=== PATIENT | female | born 1980 | race Caucasian/White ===

== ENCOUNTER 2017-08-07 19:16 | Emergency (ER) | payer MEDICAID ==
[~2017-08-07] VITALS: Ht 160 cm; Wt 70.0 kg
[~2017-08-07 19:16] MED LIST: ALBU8.5H3 INH; BENZ100C70 PO; CETI10TA34 PO; ONDA4TAB35 PO; PRED50TA PO
[2017-08-07 20:29] VITALS: Ht 160 cm; Wt 70.0 kg
[2017-08-07] MEDS ORDERED: ACETAMINOPHEN 500 MG TAB PO STA (22:56)
[2017-08-07] MEDS ORDERED: DIAZEPAM 5 MG TAB PO ONE (23:00)
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
[2017-08-07 23:41] LABS: ADD UMIC YES; UR ASCORBIC ACID NEGATIVE (NEGATIVE); UR BILIRUBIN (Dip) NEGATIVE (NEGATIVE); UR BLOOD (Dip) NEGATIVE (NEGATIVE); UR CLARITY CLEAR (CLEAR); UR COLOR YELLOW (YELLOW); UR GLUCOSE (Dip) NEGATIVE (NEGATIVE); UR KETONES (Dip) NEGATIVE (NEGATIVE); UR LEUKOCYTE ESTERASE (Dip) TRACE Leu/ul (NEGATIVE); UR NITRITE (Dip) NEGATIVE (NEGATIVE); UR RBC 1 /HPF (0-5); UR SPECIFIC GRAVITY (Dip) 1.018 (1.003-1.030); UR TOTAL PROTEIN (Dip) NEGATIVE (NEGATIVE); UR UROBILINOGEN (Dip) NEGATIVE (NEGATIVE)
[2017-08-07] MEDS ORDERED: ACET325T33 PO (23:44)
[2017-08-07] MEDS ORDERED: CYCL-319 PO (23:44)
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
[2017-08-08 00:40] VITALS: BP 111/72; PULSE 78; RESP 18; TEMP 98.1
== END 2017-08-08 00:41 | disposition home or self-care (01) ==
LOC: FTE 19:16
DX: M54.6 Pain in thoracic spine (principal); R10.2 Pelvic and perineal pain; J45.909 Unspecified asthma, uncomplicated
CPT/HCPCS: 71010; 81001; Z7610

== ENCOUNTER 2017-10-21 11:29 | Emergency (ER) | END 2017-10-21 14:45 | disposition home or self-care (01) ==

== ENCOUNTER 2017-10-29 03:11 | Emergency (ER) | END 2017-10-29 08:12 | disposition home or self-care (01) ==

== ENCOUNTER 2017-12-18 15:22 | Emergency (ER) | END 2017-12-18 19:46 | disposition home or self-care (01) ==

== ENCOUNTER 2018-01-17 00:04 | Emergency (ER) | END 2018-01-17 04:02 | disposition home or self-care (01) ==

== ENCOUNTER 2018-05-06 11:42 | Emergency (ER) | END 2018-05-06 13:30 | disposition home or self-care (01) ==